=== PATIENT | male | born 1980 | race Caucasian/White ===

== ENCOUNTER 2021-02-08 13:37 | Emergency (ER) | payer OTHER ==
[2021-02-08 15:10] VITALS: BP 119/68; PULSE 69
[2021-02-08 15:11] VITALS: O2SAT 99
--- NOTE | 2021-02-08 15:11 | ERPHSYRPT ---
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 [employer] Nursing Assessment: Pt was brought to the ER by his commercial lines account manager, sadie pete, states that when he hit his head he was dizzy and had blurred vision, rates pain as 4/10, denies losing consciousness, no bleeding, red line/ness on the right side of head, doesn't appear to be in any distress Physician History: Patient is a 41-year-old male brought to the ER by his boss after he was working on a car and the crowell of the car fell hitting his head he had no loss of consciousness he does complain of some dizziness and blurred vision he also complains of some neck pain he denies any other pain or problems. Occurred: just prior to arrival Severity: moderate Head Injury Location: frontal Method of Injury: direct blow Loss of Consciousness: no loss of consciousness Associated Symptoms: headaches Allergies/Adverse Reactions: No Known Drug Allergies Allergy (Verified 02/08/21 13:54) Home Medications: Atorvastatin Calcium [Lipitor 40Mg] 40 mg PO DAILY 02/08/21 [History] Diclofenac Sodium 50 mg [Voltaren 50 mg] 50 mg PO BID 02/08/21 [History] Sumatriptan Succinate [Imitrex] 100 mg PO UD PRN 02/08/21 [History] Travel Risk - International Travel Have you traveled outside of the country in past 3 weeks: No - Coronavirus Screening Are you exhibiting any of the following symptoms?: No Close contact with a COVID-19 positive Pt in past 14-21 Days: No - Vaccine Status Have you recieved a Covid-19 vaccination: No - Review of Systems Constitutional: No Fever, No Chills Eyes: No Symptoms Ears, Nose, & Throat: No Symptoms Respiratory: No Cough, No Dyspnea Cardiac: No Chest Pain, No Edema, No Syncope Abdominal/Gastrointestinal: No Abdominal Pain, No Nausea, No Vomiting, No Diarrhea Genitourinary Symptoms: No Dysuria Musculoskeletal: No Back Pain, No Neck Pain Skin: No Rash Neurological: No Dizziness, No Focal Weakness, No Sensory Changes Psychological: No Symptoms Endocrine: No Symptoms All Other Systems: Reviewed and Negative - Past Medical History Pertinent Past Medical History: Yes Neurological History: Migraines Cardiac History: High Cholesterol Other Medical History: carpal tunnel in the feet - Past Surgical History Past Surgical History: No - Social History Smoking Status: Current every day smoker Exposure to second hand smoke: Yes Drug Use: none Patient Lives Alone: No - Nursing Vital Signs Nursing Vital Signs: Initial Vital Signs Temperature 98.1 F 02/08/21 13:44 Pulse Rate 77 02/08/21 13:44 Blood Pressure 123/87 02/08/21 13:44 O2 Sat by Pulse Oximetry 97 02/08/21 13:44 Pain Scale Pain Intensity 4 - [place] Coma Score Best Eye Response ([place]): (4) open spontaneously Best Verbal Response ([place]): (5) oriented Best Motor Response ([place]): (6) obeys commands [place] Total: 15 - Physical Exam General Appearance: no apparent distress, alert Head Injury: contusions Eye Exam: bilateral eye: normal inspection, PERRL, EOMI ENT Exam: airway nml Neck Exam: trachea midline, full range of motion, normal inspection, pain on movement of neck Cardiovascular/Respiratory Exam: chest non-tender, normal breath sounds, regular rate/rhythm Gastrointestinal/Abdominal Exam: soft, non tender, no distention Back Exam: normal inspection, No vertebral tenderness Extremity Exam: non-tender, normal range of motion, normal inspection Mental Status Exam: alert, oriented x 3, cooperative automotive heavy mechanic Exam: normal hearing, normal speech Motor/Sensory Exam: no motor deficit, no sensory deficit Skin Exam: normal color, warm, dry Lymphatic Exam: adenopathy SpO2 Interpretation: normal SpO2: 99 O2 Delivery: Room Air - CT Exams Head CT Interpretation: Negative (The scans of the head and the neck are both neg ative for fracture dislocation bony abnormality.) Ordered Tests: Active Orders 24 hr Category Date Time Status CERVICAL SPINE WO CONTRAST [CT] Stat Exams 02/08/21 14:30 Taken HEAD WITHOUT CONTRAST [CT] Stat Exams 02/08/21 14:27 Taken - Progress Progress: improved - Departure Departure Disposition: Home Clinical Impression: Scalp contusion Condition: Stable Critical Care Time: No Referrals: MARITZA CHU MD [Primary Care Provider] - Instructions: Closed Head Injury (DC)
--- NOTE | 2021-02-08 19:33 | XRAY ---
Indication: Pain following head/neck injury with car crowell. Multiple contiguous axial images obtained through the head without contrast. Comparison: None Normal appearing brain parenchyma, ventricles, and bony calvarium for patient's age. Visualized paranasal sinuses and mastoid air cells are clear. Impression: Normal CT head without contrast exam. Comment: Preliminary interpretation was made by [facility]. No critical discrepancy.
--- NOTE | 2021-02-08 19:35 | XRAY ---
Indication: Pain following head/neck injury with car crowell. Multiple contiguous axial images obtained through the cervical spine. Sagittal and coronal reformatted images obtained. Comparison: None Axial images negative for acute fracture, suspicious bony lesions, or spinal canal stenosis. Sagittal and coronal reformatted images demonstrates normal alignment with vertebral body heights/disc spaces maintained. No acute fracture, subluxation, or jumped facet. Normal appearing craniocervical junction. Visualized noncontrasted soft tissues including lung apices are unremarkable. Impression: Normal CT cervical spine. Comment: Preliminary interpretation was made by [facility]. No critical discrepancy.
== END 2021-02-08 15:30 | disposition home or self-care (01) ==
LOC: ED 13:37
DX: S00.03XA Contusion of scalp, initial encounter (principal); M54.2 Cervicalgia; R51.9 Headache, unspecified; W22.8XXA Striking against or struck by other objects, initial encounter; Y92.69 Other specified industrial and construction area as the place of occurrence of the external cause; H53.8 Other visual disturbances; E78.00 Pure hypercholesterolemia, unspecified
CPT/HCPCS: 70450; 72125; 99283